=== PATIENT | female | born 1985 ===

== ENCOUNTER 2018-03-31 13:26 | Inpatient (IN) | payer OTHER, SELFPAY ==
[2018-03-31] MEDS ORDERED: MORPHINE 4 MG/ML SYR ONE (14:46)
[2018-03-31] MEDS ORDERED: NA CHLORIDE 0.9% 1,000 ML ONE ×2 (14:47→17:43)
[2018-03-31] MEDS ORDERED: ONDANSETRON 4 MG/2 ML VIAL ONE (14:47)
[2018-03-31 15:06] LABS: Absolute Lymphocytes (CBC) 1.6 K/uL (0.7-4.9); Absolute Monocytes 0.4 K/uL (0.1-1.3); Absolute Neutrophil 10.6 K/uL (1.8-8.0); Basophils % 0.1 % (0-1.3); Lymphocytes % 12.9 % (15.3-44.8); MCH 28.6 pg (27.0-35.0); MCV 83.1 fL (80-100); MPV 7.8 fL (7.6-11.3); Monocytes % 3.2 % (3.3-12.3); RBC Red Blood Cell Count 4.57 M/uL (3.86-4.86)
[2018-03-31 15:26] LABS: ALT/SGPT 19 U/L (12-78); AST/SGOT 16 U/L (15-37); Alkaline Phosphatase 75 U/L (45-117); BUN Blood Urea Nitrogen 8 mg/dL (7-18); Bicarbonate 25 mmol/L (21-32); Bilirubin Direct < 0.1 mg/dL (0-0.2); Bilirubin Total 0.3 mg/dL (0.2-1.0); Glucose Level 120 mg/dL (74-106); Lipase 127 U/L (73-393); Potassium 3.2 mmol/L (3.5-5.1); Protein, Total 8.3 g/dL (6.4-8.2); Sodium Level 137 mmol/L (136-145)
--- NOTE | 2018-03-31 15:37 | RAD REPORT ---
EXAM DESCRIPTION: CT - Stone Protocol - 03/31/2018 3:22 pm CLINICAL HISTORY: Abdominal pain. Right flank with nausea COMPARISON: None. TECHNIQUE: Computed axial tomography of the abdomen pelvis was obtained without oral or IV contrast. Lack of IV and oral contrast limits evaluation of solid organs, bowel, and vessels. Coronal reformat nacho images were obtained and reviewed. All CT scans are performed using dose optimization technique as appropriate and may include automated exposure control or mA/KV adjustment according to patient size. FINDINGS: A renal calculus is not seen. An ureteral calculus is not noted. A bladder calculus is not present. The liver, spleen, pancreas and adrenals appear grossly normal There is no evidence of diverticulitis. The appendix is borderline enlarged. Stranding within the adj acent fat is not seen. Multiple gallstones are present. Gallbladder wall probably is mildly thickened An IUD is in place. A tiny umbilical hernia IMPRESSION: Negative for a genitourinary calculus Cholelithiasis. Mild gallbladder wall thickening is suspected. This may indicate cholecystitis Borderline dilatation of the appendix. I suspect this is normal for the patient. Early appendicitis c an also result in this appearance and should be correlated clinically
[2018-03-31] MEDS ORDERED: KETOROLAC 30 MG/ML INJ ONE (16:26)
--- NOTE | 2018-03-31 17:25 | RAD REPORT ---
EXAM DESCRIPTION: US - Abdomen Exam Limited - 03/31/2018 5:18 pm CLINICAL HISTORY: Abdominal pain. COMPARISON: March 31, 2018 cat scan FINDINGS: Gallstones are present. The gallbladder wall is thickened measuring 5 millimeters. The biliary tree is normal caliber. IMPRESSION: Cholelithiasis. Thickened gallbladder wall may indicate cholecystitis.
[2018-03-31] MEDS ORDERED: METRONIDAZOLE 500mg IVPB 500 MG/100 ML BAG IV ONE (17:29)
[2018-03-31] MEDS ORDERED: CEFTRIAXONE/SWI 1gm 1 GM/10 ML SYR ONE (17:29)
--- NOTE | 2018-03-31 17:53 | EDPHYS ---
Physician Documentation [facility] Name: Heber Johnson Age: 32 yrs Sex: Female : 1985 Arrival Date: 03/31/2018 Time: 13:29 Bed 18 Private MD: ED Physician Ganesh Jimenez HPI: 03/31 15:00 This 32 yrs old Unknown Female presents to ER via Ambulatory with complaints of pm1 Abdominal Pain, Back Pain, Nausea. 15:00 The patient presents with abdominal pain in the right upper quadrant. Onset: The pm1 symptoms/episode began/occurred last night. The symptoms radiate to right mid back. Associated signs and symptoms: Pertinent positives: nausea, Pertinent negatives: chest pain, dysuria, fever, shortness of breath. The symptoms are described as achy. Modifying factors: The symptoms are alleviated by nothing, the symptoms are aggravated by food. Severity of pain: in the emergency department the pain is actually worse. The patient has experienced a previous episode, approximately 1 months ago, but today's symptoms are worse, and the symptoms today are exactly the same, self resolved. The patient has not recently seen a physician. 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 - Social history:: Smoking status: Patient/guardian denies using tobacco. - Ebola Screening: : No symptoms or risks identified at this time. ROS: 15:00 Constitutional: Negative for fever, chills, and weight loss, Eyes: Negative for injury, pm1 pain, redness, and discharge, ENT: Negative for injury, pain, and discharge, Neck: Negative for injury, pain, and swelling, Cardiovascular: Negative for chest pain, palpitations, and edema, Respiratory: Negative for shortness of breath, cough, wheezing, and pleuritic chest pain. 15:00 : Negative for injury, bleeding, discharge, and swelling, MS/Extremity: Negative for injury and deformity, Skin: Negative for injury, rash, and discoloration, Neuro: Negative for headache, weakness, numbness, tingling, and seizure. 15:00 Abdomen/GI: Positive for abdominal pain, nausea, of the right upper quadrant, Negative for vomiting, diarrhea. 15:00 Back: Positive for of the right mid back, pain. Exam: 15:00 Constitutional: This is a well developed, well nourished patient who is awake, alert, pm1 and in no acute distress. Head/Face: Normocephalic, atraumatic. Eyes: Pupils equal round and reactive to light, extra-ocular motions intact. Lids and lashes normal. Conjunctiva and sclera are non-icteric and not injected. Cornea within normal limits. Periorbital areas with no swelling, redness, or edema. ENT: Nares patent. No nasal discharge, no septal abnormalities noted. Tympanic membranes are normal and external auditory canals are clear. Oropharynx with no redness, swelling, or masses, exudates, or evidence of obstruction, uvula midline. Mucous membranes moist. Neck: Trachea midline, no thyromegaly or masses palpated, and no cervical lymphadenopathy. Supple, full range of motion without nuchal rigidity, or vertebral point tenderness. No Meningismus. Chest/axilla: Normal chest wall appearance and motion. Nontender with no deformity. No lesions are appreciated. Cardiovascular: Regular rate and rhythm with a normal S1 and S2. No gallops, murmurs, or rubs. Normal PMI, no JVD. No pulse deficits. Respiratory: Lungs have equal breath sounds bilaterally, clear to auscultation and percussion. No rales, rhonchi or wheezes noted. No increased work of breathing, no retractions or nasal flaring. 15:00 Skin: Warm, dry with normal turgor. Normal color with no rashes, no lesions, and no evidence of cellulitis. MS/ Extremity: Pulses equal, no cyanosis. Neurovascular intact. Full, normal range of motion. 15:00 Abdomen/GI: Inspection: abdomen appears normal, Bowel sounds: normal, Palpation: soft, moderate abdominal tenderness, in the right upper quadrant, mass, is not appreciated, rebound tenderness, is not appreciated, Indicators: McBurney's point is not tender, Chávez's sign is positive, Rovsing's sign is negative, Obturator sign is negative, Psoas sign is negative. 15:00 Back: pain, that is mild, of the right mid back, normal spinal alignment noted. 15:00 Neuro: Orientation: is normal, Motor: is normal, moves all fours, strength is normal, strength is 5/5 in all extremities, Sensation: is normal, no obvious gross deficits. Vital Signs: 14:19 BP 119 / 83; Pulse 76; Resp 16 S; Temp 99.4(O); Pulse Ox 100% on R/A; Weight 61.69 kg aa5 (R); Height 5 ft. 1 in. (154.94 cm) (R); Pain 9/10; 14:50 BP 129 / 80; Pulse 68; Resp 18; Pulse Ox 99% on R/A; Pain 10/10; em 16:00 BP 128 / 76; Pulse 75; Resp 18; Pulse Ox 98% on R/A; Pain 6/10; em 17:09 BP 123 / 77; Pulse 66; Resp 18; Pulse Ox 100% on R/A; Pain 4/10; em 18:32 BP 117 / 91; Pulse 78; Resp 18; Pulse Ox 99% on R/A; Pain 5/10; em 18:52 Temp 98.5(O); em 19:12 BP 120 / 77; Pulse 77; Resp 16 S; Pulse Ox 100% on R/A; jd3 14:19 Body Mass Index 25.70 (61.69 kg, 154.94 cm) aa5 MDM: 14:32 Patient medically screened. pm1 17:31 Data reviewed: vital signs. Data interpreted: Pulse oximetry: on room air is 100 %. pm1 Interpretation: normal. Counseling: I had a detailed discussion with the patient and/or guardian regarding: the historical points, exam findings, and any diagnostic results supporting the discharge/admit diagnosis, lab results, radiology results, the need for further work-up and treatment in the hospital. 17:35 Physician consultation: Herb Locke MD was called at 17:33, was contacted at 17:33, pm1 regarding admission, patient's condition, and will see patient would like medications started, antibiotics, NPO, IV fluids., Plan: Keep patient NPO for GI rest, IV fluids, and antibiotics. If no improvement by Monday, will perform surgery. 17:35 Physician consultation: Herb Locke MD Admit to his service. pm1 03/31 14:38 Order name: Basic Metabolic Panel; Complete Time: 15:43 pm1 03/31 14:38 Order name: CBC with Diff; Complete Time: 15:43 pm1 03/31 14:38 Order name: Creatinine for Radiology; Complete Time: 15:43 pm1 03/31 14:38 Order name: Hepatic Function; Complete Time: 15:43 pm1 03/31 14:38 Order name: Lipase; Complete Time: 15:43 pm1 03/31 15:03 Order name: Urine Dipstick--Ancillary (enter results); Complete Time: 18:13 eb 03/31 14:38 Order name: CT Stone Protocol; Complete Time: 15:43 pm1 03/31 15:03 Order name: Urine --Ancillary (enter results); Complete Time: 18:13 eb 03/31 16:13 Order name: US Abdomen Limited; Complete Time: 17:26 pm1 03/31 14:38 Order name: IV Saline Lock; Complete Time: 14:59 pm1 03/31 14:38 Order name: Labs collected and sent; Complete Time: 14:59 pm1 03/31 14:38 Order name: Urine Dipstick-Ancillary (obtain specimen); Complete Time: 14:59 pm1 03/31 14:38 Order name: Urine Test (obtain specimen); Complete Time: 14:59 pm1 03/31 17:14 Order name: NPO; Complete Time: 17:18 pm1 Administered Medications: 14:57 Drug: morphine 4 mg Route: IVP; Site: left antecubital; iw 16:14 Follow up: Response: No adverse reaction; Pain is decreased em 14:58 Drug: Zofran 4 mg Route: IVP; Site: left antecubital; iw 16:14 Follow up: Response: No adverse reaction em 14:58 Drug: NS 0.9% 1000 ml Route: IV; Rate: 1000 ml; Site: left antecubital; iw 17:30 Follow up: IV Status: Completed infusion; IV Intake: 1000ml em 17:50 Drug: Rocephin 1 grams Route: IV; Rate: calculated rate; Site: left antecubital; iw 18:35 Follow up: Response: No adverse reaction; IV Status: Completed infusion; IV Intake: 10mlem 17:53 Drug: Flagyl 500 mg Volume: 100 ml; Route: IVPB; Rate: 200 ml/hr; Infused Over: 30 em mins; Site: left antecubital; 18:51 Follow up: Response: No adverse reaction; IV Status: Completed infusion; IV Intake: em 100ml 17:53 Drug: NS 0.9% 1000 ml Route: IV; Rate: 100 ml/hr; Site: left antecubital; em 19:13 Follow up: Response: No adverse reaction; IV Status: Infusion continued upon admission jd3 18:45 Drug: TORadol 30 mg Route: IVP; Site: left antecubital; iw 19:13 Follow up: Response: No adverse reaction jd3 Disposition: 04/01 11:46 Co-signature as Attending Physician, Ganesh Jimenez MD. Disposition: 03/31/18 17:52 Hospitalization ordered by Herb Locke for Inpatient Admission. Preliminary diagnosis is Cholecystitis. - Bed requested for Telemetry/MedSurg (Inpatient). - Status is Inpatient Admission. jd3 - Condition is Stable. - Problem is new. - Symptoms have improved. UTI on Admission? No Signatures: Dispatcher [employer] NICOLEID Ileana Vyas RN RN Darrin Redd, MEAT CARRIER MEAT CARRIER Marian Bass RN RN Karine Turpin RN RN aa5 Hermilo Holden, ADMISSIONS SPECIALIST ADMISSIONS SPECIALIST pm1 Ganesh Jimenez MD MD Lloyd Evans RN RN jd3 Corrections: (The following items were deleted from the chart) 03/31 17:58 17:52 Hospitalization Ordered by Herb Locke MD for Observation. Preliminary pm1 diagnosis is Cholecystitis. Bed requested for Telemetry/MedSurg (observation). Status is Observation. Condition is Stable. Problem is new. Symptoms have improved. UTI on Admission? No. pm1 18:53 17:58 03/31/2018 17:52 Hospitalization Ordered by Herb Locke MD for Inpatient dw Admission. Preliminary diagnosis is Cholecystitis. Bed requested for Telemetry/MedSurg (Inpatient). Status is Inpatient Admission. Condition is Stable. Problem is new. Symptoms have improved. UTI on Admission? No. pm1 20:00 18:53 03/31/2018 17:52 Hospitalization Ordered by Herb Locke MD for Inpatient jd3 Admission. Preliminary diagnosis is Cholecystitis. Bed requested for Telemetry/MedSurg (Inpatient). Status is Inpatient Admission. Condition is Stable. Problem is new. Symptoms have improved. UTI on Admission? No. dw
--- NOTE | 2018-03-31 17:53 | ER ---
Nurse's Notes [facility] Name: Heber Johnson Age: 32 yrs Sex: Female : 1985 Arrival Date: 03/31/2018 Time: 13:29 Bed 18 Private MD: Diagnosis: Cholecystitis Presentation: 03/31 14:17 Presenting complaint: Patient states: right low back pain that began last night. pt aa5 denies urinary symptoms, reports nausea and vomiting. Transition of care: patient was not received from another setting of care. Onset of symptoms was March 2018. Risk Assessment: Do you want to hurt yourself or someone else? Patient reports no desire to harm self or others. Initial Sepsis Screen: Does the patient meet any 2 criteria? No. Patient's initial sepsis screen is negative. Does the patient have a suspected source of infection? No. Patient's initial sepsis screen is negative. Care prior to arrival: None. 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 - Social history:: Smoking status: Patient/guardian denies using tobacco. - Ebola Screening: : No symptoms or risks identified at this time. Screenin:35 Abuse screen: Denies threats or abuse. Nutritional screening: No deficits noted. em Tuberculosis screening: No symptoms or risk factors identified. Fall Risk None identified. Assessment: 14:35 General: Appears in no apparent distress. uncomfortable, slender, well developed, well em nourished, Behavior is calm, cooperative. Pain: Complains of pain in back Pain radiates to right lower quadrant Pain currently is 10 out of 10 on a pain scale. Neuro: Level of Consciousness is awake, alert, obeys commands, Oriented to person, place, time, situation. Cardiovascular: Heart tones S1 S2 present Capillary refill < 3 seconds Patient's skin is warm and dry. Respiratory: Airway is patent Respiratory effort is even, unlabored, Respiratory pattern is regular, symmetrical. GI: Abdomen is flat, Bowel sounds present X 4 quads. Abd is soft X 4 quads Reports nausea, vomiting. : Denies burning with urination. EENT: No signs and/or symptoms were reported regarding the EENT system. Derm: Skin is intact, Skin is pink, warm \T\ dry. Musculoskeletal: Range of motion: intact in all extremities. 14:50 Reassessment: Patient appears in no apparent distress at this time. I agree with above iw assessment by Darrin Redd LVN. 16:12 Reassessment: Patient appears in no apparent distress at this time. Patient and/or em family updated on plan of care and expected duration. Pain level reassessed. Patient is alert, oriented x 3, equal unlabored respirations, skin warm/dry/pink. rates pain 6/10, request pain medication, provider notified Patient states feeling better. 17:07 Reassessment: Patient appears in no apparent distress at this time. Patient and/or em family updated on plan of care and expected duration. Pain level reassessed. Patient is alert, oriented x 3, equal unlabored respirations, skin warm/dry/pink. rates pain 4/10, currently wants to hold off on medication, instructed if pain gets greater than 5/10 to notify nurse, US at bedside. 17:56 Reassessment: Patient appears in no apparent distress at this time. Patient and/or em family updated on plan of care and expected duration. Pain level reassessed. Patient is alert, oriented x 3, equal unlabored respirations, skin warm/dry/pink. pending admission. 18:32 Reassessment: Patient appears in no apparent distress at this time. Patient and/or em family updated on plan of care and expected duration. Pain level reassessed. Patient is alert, oriented x 3, equal unlabored respirations, skin warm/dry/pink. pending room assignment. 19:09 Reassessment: Patient appears in no apparent distress at this time. No changes from jd3 previously documented assessment. Patient and/or family updated on plan of care and expected duration. Pain level reassessed. Patient is alert, oriented x 3, equal unlabored respirations, skin warm/dry/pink. Patient states feeling better. 20:00 Reassessment: Patient appears in no apparent distress at this time. No changes from jd3 previously documented assessment. Patient and/or family updated on plan of care and expected duration. Pain level reassessed. Patient is alert, oriented x 3, equal unlabored respirations, skin warm/dry/pink. reported understanding on need for admission. Vital Signs: 14:19 BP 119 / 83; Pulse 76; Resp 16 S; Temp 99.4(O); Pulse Ox 100% on R/A; Weight 61.69 kg aa5 (R); Height 5 ft. 1 in. (154.94 cm) (R); Pain 9/10; 14:50 BP 129 / 80; Pulse 68; Resp 18; Pulse Ox 99% on R/A; Pain 10/10; em 16:00 BP 128 / 76; Pulse 75; Resp 18; Pulse Ox 98% on R/A; Pain 6/10; em 17:09 BP 123 / 77; Pulse 66; Resp 18; Pulse Ox 100% on R/A; Pain 4/10; em 18:32 BP 117 / 91; Pulse 78; Resp 18; Pulse Ox 99% on R/A; Pain 5/10; em 18:52 Temp 98.5(O); em 19:12 BP 120 / 77; Pulse 77; Resp 16 S; Pulse Ox 100% on R/A; jd3 14:19 Body Mass Index 25.70 (61.69 kg, 154.94 cm) aa5 ED Course: 13:29 Patient arrived in ED. mr 14:18 Triage completed. aa5 14:21 Darrin Redd LVN is Primary Nurse. em 14:30 Tevin Holden NP is PHCP. pm1 14:30 Ganesh Jimenez MD is Attending Physician. pm1 14:35 Patient has correct armband on for positive identification. Placed in gown. Bed in low em position. Call light in reach. 14:35 Arm band placed on. em 14:35 No provider procedures requiring assistance completed. em 14:50 Initial lab(s) drawn, by me, sent to lab. Urine collected: clean catch specimen, clear. em Inserted saline lock: 20 gauge in left antecubital area, using aseptic technique. Blood collected. 15:18 CT completed. Patient moved to CT via wheelchair. Patient moved back from CT. bq 15:22 CT Stone Protocol In Process Unspecified. EDMS 17:18 US Abdomen Limited In Process Unspecified. EDMS 17:19 Ultrasound completed. Patient tolerated well. Notified MOTTLER OPERATOR/PA tevin. sg3 17:52 Herb Locke MD is Hospitalizing Provider. pm1 19:36 Patient admitted, IV remains in place. jd3 Administered Medications: 14:57 Drug: morphine 4 mg Route: IVP; Site: left antecubital; iw 16:14 Follow up: Response: No adverse reaction; Pain is decreased em 14:58 Drug: Zofran 4 mg Route: IVP; Site: left antecubital; iw 16:14 Follow up: Response: No adverse reaction em 14:58 Drug: NS 0.9% 1000 ml Route: IV; Rate: 1000 ml; Site: left antecubital; iw 17:30 Follow up: IV Status: Completed infusion; IV Intake: 1000ml em 17:50 Drug: Rocephin 1 grams Route: IV; Rate: calculated rate; Site: left antecubital; iw 18:35 Follow up: Response: No adverse reaction; IV Status: Completed infusion; IV Intake: 10mlem 17:53 Drug: Flagyl 500 mg Volume: 100 ml; Route: IVPB; Rate: 200 ml/hr; Infused Over: 30 em mins; Site: left antecubital; 18:51 Follow up: Response: No adverse reaction; IV Status: Completed infusion; IV Intake: em 100ml 17:53 Drug: NS 0.9% 1000 ml Route: IV; Rate: 100 ml/hr; Site: left antecubital; em 19:13 Follow up: Response: No adverse reaction; IV Status: Infusion continued upon admission jd3 18:45 Drug: TORadol 30 mg Route: IVP; Site: left antecubital; iw 19:13 Follow up: Response: No adverse reaction jd3 Intake: 17:30 IV: 1000ml; Total: 1000ml. em 18:35 IV: 10ml; Total: 1010ml. em 18:51 IV: 100ml; Total: 1110ml. em Outcome: 17:52 Decision to Hospitalize by Provider. pm1 19:35 Admitted to Med/surg accompanied by ankush, via stretcher, via wheelchair, room 413, with jd3 chart, Report called to Clarissa RN 19:35 Condition: stable 19:35 Instructed on the need for admit, Demonstrated understanding of instructions. 20:00 Patient left the ED. jd3 Signatures: Dispatcher Charity Baez mr Kidd, Deena Redd, Darrin, AMERICAN SIGN LANGUAGE TEACHER AMERICAN SIGN LANGUAGE TEACHER Marian Chicas, RN RN iw Papi, Karine, RN RN aa5 Tevin Holden, MOTTLER OPERATOR MOTTLER OPERATOR pm1 Lloyd Evans, RN RN jd3 Vikas, Estella 3
[2018-03-31 17:58] LABS: Urine Blood TRACE (NEG); Urine Glucose NEGATIVE (NEG); Urine Protein 1+ (NEG); Urine Specific Gravity 1.025 (1.005-1.030)
[2018-03-31] MEDS ORDERED: ACETAMINOPHEN 500 MG TAB PO PRN (20:34)
[2018-03-31] MEDS ORDERED: ONDANSETRON 4 MG/2 ML VIAL IV PRN (20:34)
[2018-03-31] MEDS ORDERED: MORPHINE 4 MG/ML SYR IV PRN (20:34)
[2018-03-31] MEDS: D5 0.45 NS 1,000 ML IV SCH (22:19)
[2018-04-01] MEDS: METRONIDAZOLE 500mg IVPB 500 MG/100 ML BAG IV SCH ×3 (02:30→16:35)
[2018-04-01] MEDS: D5 0.45 NS 1,000 ML IV SCH ×3 (05:16→20:34)
[2018-04-01] MEDS: CEFTRIAXONE/SWI 1gm 1 GM/10 ML SYR IVP SCH ×2 (05:17→20:40)
[2018-04-01] MEDS ORDERED: CEFTRIAXONE 1 GM/NS 50 ML 1 GM/50 ML BAG IV SCH (06:00)
[2018-04-01 06:27] LABS: Absolute Lymphocytes (CBC) 3.7 K/uL (0.7-4.9); Absolute Monocytes 0.4 K/uL (0.1-1.3); Absolute Neutrophil 3.9 K/uL (1.8-8.0); Basophils % 0.3 % (0-1.3); Eosinophils % 1.4 % (0-4.4); Hematocrit 33.5 % (36.0-45.0); Lymphocytes % 45.5 % (15.3-44.8); MCH 28.7 pg (27.0-35.0); MCV 84.3 fL (80-100); MPV 7.7 fL (7.6-11.3); Monocytes % 5.4 % (3.3-12.3); RBC Red Blood Cell Count 3.97 M/uL (3.86-4.86)
[2018-04-01 07:15] LABS: ALT/SGPT 15 U/L (12-78); AST/SGOT 16 U/L (15-37); Alkaline Phosphatase 60 U/L (45-117); BUN Blood Urea Nitrogen 7 mg/dL (7-18); Bicarbonate 25 mmol/L (21-32); Bilirubin Direct < 0.1 mg/dL (0-0.2); Bilirubin Total 0.3 mg/dL (0.2-1.0); Glucose Level 111 mg/dL (74-106); Lipase 164 U/L (73-393); Protein, Total 6.5 g/dL (6.4-8.2); Sodium Level 141 mmol/L (136-145)
--- NOTE | 2018-04-01 23:09 | PN ---
Date of Progress Note: 04/01/2018 Diagnoses: Acute cholecystitis, symptomatic cholelithiasis. Subjective: The patient is doing better. No nausea, no vomiting. Review of Systems: Ten points otherwise unremarkable. Objective: Chest: Bilateral breath sounds. Abdomen: Soft and depressible. No Chávez sign today. No guarding or rebound. Mild right upper marquita drant tenderness . Extremities: Good capillary refill. Laboratory Data: Blood work review. Normal LFTs. Plan: The patient is tolerating diet, liquid. She is going to continue advancing diet since she wan ts to try conservative treatment. It was explained to her and her at this time once again th e option of laparoscopic, possible open cholecystectomy with benefits, alternatives, and risk either for this or electively. The patient understood. We are going to advance diet. If she gets to go ho me, she was advised to be on a low-fat diet and follow with us in the office in a week and continue t he antibiotics. LIBBY/CODY Voice ID: [id number] Report ID: [id number]
[2018-04-02] MEDS: D5 0.45 NS 1,000 ML IV SCH ×5 (00:01→22:34)
--- NOTE | 2018-04-02 09:28 | HP ---
Date of Admission: 03/31/2018 Reason For Service: Acute cholecystitis, symptomatic cholelithiasis. History Of Present Illness: This is the case of a 32-year-old patient, comes to us complaining of ep igastric pain for about 3 weeks of duration. Last night, she ate some barbecue, so this m orning she felt better and decided to come tonight to the ER since she was not improving. At this mo ment, she denies any nausea or vomiting. The pain was trying to be controlled in the ER, but since t he pain was not under control, they asked me for admission and evaluation of this patient. The patie nt denies any dysuria, hematuria, hematochezia, or melena. Denies any recent traveling out of the [facility]. Denies any family members sick at home. Past Medical History: None. Surgical History: Breast augmentation. Allergies: NONE. Social History: She does not smoke. She does not drink alcohol. Family History: Unremarkable. Review of Systems: Ten points, otherwise unremarkable. Physical Examination: General: The patient is awake and alert. HEENT: Pupils are equal and reactive, anicteric. Neck: Supple. Chest: Clear. Bilateral breath sounds. Breasts: Deferred. Abdomen: Epigastric tenderness. The rest of abdomen is soft and depressible. Chávez sig n positive. Pelvic: Deferred. Rectal: Deferred. Extremities: Good capillary refill. Neuro: Cranial nerves 2 through 12 grossly within normal limits. Laboratory Data: Blood work shows WBC count of 12.6 with hemoglobin of 13.1, total bilirubin of 0.3, AST 16, ALT 19, glucose 120. UA: Glucose negative, negative. Abdominal ultrasound inter preted by Dr. Maxwell as cholelithiasis, thickening of gallbladder, may indicate cholecystitis. CAT scan of the abdomen shows mild gallbladder thickening. mild dilatation of appendix; [facility] er, the patient has no abdominal pain whatsoever in the right lower quadrant. Assessment/plan: This is a case of a 32-year-old patient, comes to us with epigastric katelyn n diagnosed with acute cholecystitis and umbilical hernia. The patient, right now, feels better. [facility], there is no point of tenderness, anything that is suspec t for appendix. So the patient has epigastric pain consistent with the findings of a cholecystitis. So patient was admitted to the hospital, was started on the antibiotics, bowel rest, IV hydration. She understands the options of laparoscopic, possible open cholecystectomy with benefits, alternative s, and risks including, but not limited to infection, bleeding, damage to adjacent structures, anesth esia complication, MO, and even . She also understands symptoms, she might need more than one surgical intervention. She is trying to see if she can treat this conservatively with ____ at this moment, she preferred to have elective surgery and did see by tomorrow how she respond s to a bowel rest, hydration and the antibiotics. If she is improving, then we may give her a trial of diet and then she may have antibiotics at home and then do elective cholecystectomy. O devaughnwise, she is going to have during this admission. She and will proceed acc ordingly. LIBBY/CODY Voice ID: [id number]
[2018-04-02] MEDS: METRONIDAZOLE 500mg IVPB 500 MG/100 ML BAG IV SCH ×3 (11:02→16:49)
[2018-04-02] MEDS: CEFTRIAXONE/SWI 1gm 1 GM/10 ML SYR IVP SCH ×2 (11:02→20:24)
[2018-04-03] MEDS: METRONIDAZOLE 500mg IVPB 500 MG/100 ML BAG IV SCH ×3 (00:10→16:45)
[2018-04-03] MEDS: D5 0.45 NS 1,000 ML IV SCH ×2 (01:47→09:33)
[2018-04-03 07:35] LABS: ALT/SGPT 788 U/L (12-78); Albumin 3.3 g/dL (3.4-5.0); Alkaline Phosphatase 147 U/L (45-117); Amylase Level 29 U/L (25-115); BUN Blood Urea Nitrogen 2 mg/dL (7-18); Bicarbonate 24 mmol/L (21-32); Bilirubin Direct 1.2 mg/dL (0-0.2); Bilirubin Total 1.5 mg/dL (0.2-1.0); Glucose Level 111 mg/dL (74-106); Lipase 118 U/L (73-393); Protein, Total 7.1 g/dL (6.4-8.2); Sodium Level 140 mmol/L (136-145)
[2018-04-03 07:41] LABS: AST/SGOT 1444 U/L (15-37)
[2018-04-03] MEDS: CEFTRIAXONE/SWI 1gm 1 GM/10 ML SYR IVP SCH (08:09)
[2018-04-03] MEDS: KCL 20 MEQ/100 mL IVPB 20 MEQ/100 ML BAG IV SCH ×2 (09:35→13:40)
--- NOTE | 2018-04-03 12:09 | RAD REPORT ---
EXAM DESCRIPTION: MRI - Cholangiogram - 04/03/2018 12:00 pm CLINICAL HISTORY: Elevated liver enzymesa COMPARISON: Abdomen Exam Limited dated 03/31/2018; Stone Protocol dated 03/31/2018 FINDINGS: Three-dimensional MRCP was performed using maximum intensity projection reconstruction on the same work station. The gallbladder demonstrates multiple stones with mild pericholecystic fluid. Intrahepatic biliary tree dilatation is seen. Common bile duct is dilated to 8 mm. A small filling de fect is seen in the distal common bile duct demonstrating a meniscus most compatible with a distal co mmon bile duct stone. Limited T2 sequences through the abdomen demonstrates no bulky adenopathy, significant free fluid or abscess. IMPRESSION: Choledocholithiasis is present with mild intra and extrahepatic biliary tree dilatation. Cholelithiasis is also seen with mild pericholecystic fluid evident.
--- NOTE | 2018-04-03 15:46 | P.CNS ---
Date of Consult: 04/03/18 Reason for Consult: Cholidocholilithasis Requesting Physician: Herb Locke History of Present Illness: This is the case of a 32-year-old patient, who came to the ER complaining of epigastric pain for about 3 weeks of duration. Pt [facility] and later was found to have cholyliathsis. On day 3 of admission patient developed worsening of RUQ pain along with Worsening of her N/V and thus MRCP was done. MRCP was consistent choledocholithiasis. Medicine team was consulted at that time for further care Allergies latex Allergy (Verified 03/31/18 22:18) Itching/Hives/Rash Home Medications: Amox/Clavulanate [Augmentin 875-125 Tab] 875 mg PO BID #12 tab 04/01/18 Codeine/APAP [Tylenol W/Codeine #3 tab] 1 tab PO Q4HP PRN #15 tab 04/01/18 - Past Medical/Surgical History Diabetic: No -: Breast Augmentation - Family History Mother Medical History: GI disease - Social History Alcohol use: No CD- Drugs: No Caffeine use: No Place of Residence: Home Review of Systems 10-point ROS is otherwise unremarkable Physical Examination Temp Pulse Resp BP Pulse Ox 97.9 F 58 16 117/70 100 04/03/18 12:00 04/03/18 12:00 04/03/18 12:00 04/03/18 12:00 04/03/18 12:00 General: Alert, In no apparent distress HEENT: Atraumatic, PERRLA, Mucous membr. moist/pink, EOMI, Sclerae nonicteric Neck: Supple, 2+ carotid pulse no bruit, No LAD, Without JVD or thyroid abnormality Respiratory: Clear to auscultation bilaterally, Normal air movement Cardiovascular: Regular rate/rhythm, Normal S1 S2 Gastrointestinal: Normal bowel sounds, Tenderness Musculoskeletal: No tenderness Integumentary: No rashes Neurological: Normal gait, Normal speech, Normal tone, Normal affect Lymphatics: No axilla or inguinal lymphadenopathy Laboratory Data (last 24 hrs) 04/03/18 06:53: Sodium 140, Potassium 3.0 L, BUN 2 L, Creatinine 0.50 L, Glucose 111 H, Total Bilirubin 1.5 H, AST 1444 H* D, ALT 788 H* D, Alkaline Phosphatase 147 H D, Amylase 29, Lipase 118 - Problems (1) Choledocholithiasis Current Visit: Yes Status: Acute Plan: Patient with choledocholithiasis on MRCP with elevated LFTs today. GI was consulted here in the hospital. Dr. Amanda was notified of the patient however Dr. Amanda does not perform ERCP. Thus patient was referred over to transfer to a higher level of care for no GI coverage. Patient was started on antibiotics for cholelithiasis with possible infection. [facility] was consulted Dr. Quiroz from GI accepted the patient there for the ERCP and patient was thus transferred to their facility for further care.
--- NOTE | 2018-04-03 19:25 | PN ---
Date of Progress Note: 04/03/2018 Diagnoses: Acute cholecystitis, symptomatic cholelithiasis, and choledocholithiasis. Subjective: The patient is doing okay today. Yesterday, she was trying to see if she can continue c onservative treatment and trying to get some diet to see if she can go home, but the pain returned af ter eating some diet and she was advised to stay in the hospital for further workup. Today, workup s hows increased liver function tests, suspicious for a stone in the common bile duct. Review of Systems: Ten points otherwise unremarkable. Physical Examination: General: The patient is awake and alert. No distress. HEENT: Pupils are equal and reactive, anicteric. Neck: Supple. Chest: Clear. Abdomen: Mild epigastric tenderness. Extremities: Good capillary refill. Laboratory Data: Blood work shows a WBC count of 8.2, but LFTs shows AST of 1444, ALT is 788, lipase and amylase within normal limits, but total bilirubin of 1.5. An MRCP done today shows a choledocho lithiasis present with mild intrahepatic and biliary tree dilatation. Assessment: This is a 32-year-old patient with acute cholecystitis, symptomatic cholelithiasis, and choledocholithiasis. We are trying to get a GI doctor in this hospital involved in the case. The on e on-call does not perform ERCP. There is nobody on-call right now, who does ERCP, so we asked for [facility] case management coordinator to help us with the proper disposition of this patient to receive proper car e that will be through a journeyman operator assistant with an ERCP. They are working on that. The patient was aware of this situation. They are trying to contact one of the alternative GI doctors in [facility] to se e if he is able to do that. Otherwise, we may have to consider transferring to any hospital that may provide that service. In the meantime, she is stable. LIBBY/CODY Voice ID: [id number] Report ID: [id number]
== END 2018-04-03 19:16 | disposition short-term general hospital (02) | DRG 446 ==
LOC: ER 13:26 → ERHOLD 17:55 → 4TH 19:40 → OBSVTOIN 04-03 11:02
PROVIDERS: ADMIT Surgery; ATTEND Surgery
DX: K80.62 Calculus of gallbladder and bile duct with acute cholecystitis without obstruction (principal); K42.9 Umbilical hernia without obstruction or gangrene; Z91.040 Latex allergy status
CPT/HCPCS: 36415; 74176; 74181; 76377; 76705; 80048; 80076; 81003; 81025; 82150; 83690; 85025; 96361; 96365; 96375; 99285; G0378; J0696; J2405; J7030